=== PATIENT | male | born 1950 | race Two or more races ===

== ENCOUNTER 2019-08-02 09:53 | Emergency (ER) | payer OTHER ==
[~2019-08-02] VITALS: Ht 175.3 cm; Wt 106.6 kg
[2019-08-02] MEDS ORDERED: ATORVASTATIN CA20 MG PO (10:03)
[2019-08-02] MEDS ORDERED: CHLORTHALIDONE PO (10:04)
[2019-08-02] MEDS ORDERED: COZAAR100 MG PO (10:05)
[2019-08-02] MEDS ORDERED: VERELAN240 MG PO (10:05)
[2019-08-02] MEDS ORDERED: VERELAN120 MG PO (10:06)
[2019-08-02] MEDS ORDERED: TAMS0.4C PO (10:06)
[2019-08-02] MEDS ORDERED: CARDURA1 MG PO (10:06)
== END 2019-08-02 11:55 | disposition home or self-care (01) ==
LOC: ER 09:53
DX: M51.17 Intervertebral disc disorders with radiculopathy, lumbosacral region (principal)

== ENCOUNTER 2019-08-04 06:58 | Emergency (ER) | payer OTHER ==
[~2019-08-04] VITALS: Ht 175.3 cm; Wt 108.4 kg
[~2019-08-04 06:58] MED LIST: ATORVASTATIN CA20 MG PO; CARDURA1 MG PO; CHLORTHALIDONE PO; COZAAR100 MG PO; TAMS0.4C PO; VERELAN120 MG PO; VERELAN240 MG PO
== END 2019-08-04 10:12 | disposition home or self-care (01) ==
LOC: ER 06:58
DX: G57.01 Lesion of sciatic nerve, right lower limb (principal)

== ENCOUNTER → 2019-08-16 | Emergency (ER) | payer OTHER ==
[~2019-08-16] VITALS: Ht 175.3 cm; Wt 106.6 kg
== END | disposition home or self-care (01) ==
LOC: ER 09:11
DX: M54.5 Low back pain (principal)

== ENCOUNTER 2022-01-29 12:07 | Emergency (ER) | payer OTHER ==
[~2022-01-29] VITALS: Ht 175.3 cm; Wt 106.6 kg
[2022-01-29] MEDS ORDERED: PROSCAR5 MG PO (12:38)
[2022-01-29] MEDS ORDERED: CARDURA1 MG PO (12:38)
[2022-01-30] MEDS ORDERED: LEVOFLOXACIN500 MG PO (11:45)
== END 2022-01-29 15:29 | disposition home or self-care (01) ==
LOC: ER 12:07
DX: I82.492 Acute embolism and thrombosis of other specified deep vein of left lower extremity (principal); L03.116 Cellulitis of left lower limb; I10 Essential (primary) hypertension; Z88.2 Allergy status to sulfonamides

== ENCOUNTER 2022-01-30 09:56 | Emergency (ER) | payer OTHER ==
[~2022-01-30] VITALS: Ht 175.3 cm; Wt 104.3 kg
[~2022-01-30 09:56] MED LIST changes: +PROSCAR5 MG PO
[2022-01-30] MEDS ORDERED: LEVOFLOXACIN500 MG PO (11:45)
== END 2022-01-30 11:59 ==
LOC: ER 09:56
DX: M79.605 Pain in left leg (principal); L03.116 Cellulitis of left lower limb; Z88.2 Allergy status to sulfonamides

== ENCOUNTER 2024-03-04 11:57 | Emergency (ER) | payer OTHER ==
[~2024-03-04] VITALS: Ht 172.7 cm; Wt 102.1 kg
[~2024-03-04 11:57] MED LIST changes: +LEVOFLOXACIN500 MG PO
[2024-03-04] MEDS ORDERED: CEFTRIAXONE SODIUM 2,000 MG VIAL IM ONE (12:45)
[2024-03-04] MEDS ORDERED: CEFTRIAXONE SODIUM 2,000 MG VIAL ONE (12:52)
[2024-03-04 13:15] LABS: HEMATOCRIT 32.5 % (39.0-48.0); HEMOGLOBIN 11.5 g/dL (13-16.00); MEAN CELL VOLUME 85.1 fL (80.0-100.00); MEAN CORPUSCULAR HGB CONC 35.3 g/dl (32.0-36.0); PLATELET COUNT 275 K/uL (150-450); RED BLOOD COUNT 3.82 M/uL (4.00-6.00); RED CELL DISTRIBUTION WIDTH 14.6 % (11.5-14.5)
[2024-03-04 13:20] LABS: ERYTHROCYTE SEDIMENTATION RATE 21 mm/hr
[2024-03-04 13:35] LABS: ALBUMIN 3.5 gm/dL (3.4-5.0); BILIRUBIN TOTAL 0.42 mg/dL (0.3-1.2); CALCIUM 9.1 mg/dL (8.5-10.1); CREATININE SERUM 1.13 mg/dL (0.70-1.30); GFR 63.26; GLOBULINA 3.6 G/DL (2.4-3.5); POTASSIUM 3.9 mEq/L (3.5-5.1); TOTAL PROTEIN 7.1 gm/dL (6.4-8.2)
[2024-03-04] MEDS ORDERED: CEPHALEXIN750 MG PO (14:39)
== END 2024-03-04 14:44 | disposition home or self-care (01) ==
LOC: ER 11:59
PROVIDERS: General Practice
DX: L03.116 Cellulitis of left lower limb (principal); I10 Essential (primary) hypertension; E11.9 Type 2 diabetes mellitus without complications; Z88.2 Allergy status to sulfonamides

== ENCOUNTER 2024-03-23 07:05 | Emergency (ER) | payer OTHER ==
[~2024-03-23] VITALS: Ht 175.3 cm; Wt 104.8 kg
[~2024-03-23 07:05] MED LIST changes: +CEPHALEXIN750 MG PO
[2024-03-23] MEDS ORDERED: VERELAN PM300 MG (07:54)
[2024-03-23] MEDS ORDERED: VERELAN PM200 MG (07:54)
[2024-03-23] MEDS ORDERED: CEPHALEXIN500 M1 PO (08:39)
== END 2024-03-23 08:52 | disposition home or self-care (01) ==
LOC: ER 07:06
DX: L03.032 Cellulitis of left toe (principal); L03.116 Cellulitis of left lower limb; Z88.2 Allergy status to sulfonamides; J45.909 Unspecified asthma, uncomplicated; E11.9 Type 2 diabetes mellitus without complications; I12.9 Hypertensive chronic kidney disease with stage 1 through stage 4 chronic kidney disease, or unspecified chronic kidney disease; N18.9 Chronic kidney disease, unspecified